=== PATIENT | female | born 1980 | race Caucasian/White ===

== ENCOUNTER 2018-01-21 12:07 | Inpatient (IN) | payer MEDICAID ==
[2018-01-21 13:00] LABS: ADD UMIC YES; UR AMORPHOUS CRYSTAL FEW /HPF (NONE SEEN); UR ASCORBIC ACID NEGATIVE (NEGATIVE); UR BILIRUBIN (Dip) NEGATIVE (NEGATIVE); UR BLOOD (Dip) NEGATIVE (NEGATIVE); UR CLARITY CLOUDY (CLEAR); UR COLOR YELLOW (YELLOW); UR GLUCOSE (Dip) NEGATIVE (NEGATIVE); UR KETONES (Dip) NEGATIVE (NEGATIVE); UR LEUKOCYTE ESTERASE (Dip) NEGATIVE Leu/ul (NEGATIVE); UR NITRITE (Dip) NEGATIVE (NEGATIVE); UR RBC 0 /HPF (0-5); UR SPECIFIC GRAVITY (Dip) 1.014 (1.003-1.030); UR SQUAMOUS EPITHELIAL CELL FEW /HPF (FEW); UR TOTAL PROTEIN (Dip) NEGATIVE (NEGATIVE); UR UROBILINOGEN (Dip) NEGATIVE (NEGATIVE); UR WBC 4 /HPF (0-5)
[2018-01-21] MEDS ORDERED: CARBOPROST 250 MCG INJ IM (21:30)
[2018-01-21] MEDS ORDERED: MISOPROSTOL 200 MCG TAB PR (21:30)
[2018-01-21] MEDS ORDERED: OXYTOCIN 30 UNITS/LR 500 ML IV ×2 (21:30)
[2018-01-21] MEDS: LACTATED RINGER'S 1,000 ML IV* (22:18)
[2018-01-21 22:31] LABS: ADD MAN DIFF? NO
[2018-01-21 22:34] LABS: BASOPHILS % 0.2 % (0.0-2.0); EOSINOPHILS % 0.2 % (0.0-7.0); HEMATOCRIT 35.1 % (37.0-47.0); HEMOGLOBIN 11.6 g/dl (12.0-16.0); LYMPHOCYTES # 1.8 10^3/ul (0.8-2.9); LYMPHOCYTES % 17.4 % (15.0-51.0); MEAN CORPUSCULAR HEMOGLOBIN 25.1 pg (29.0-33.0); MEAN PLATELET VOLUME 10.3 fl (7.4-10.4); MONOCYTE # 0.5 10^3/ul (0.3-0.9); MONOCYTES % 5.4 % (0.0-11.0); NEUTROPHIL # 7.7 10^3/ul (1.6-7.5); NEUTROPHILS % 76.5 % (39.0-77.0); PLATELET COUNT 340 10^3/UL (140-415); RED BLOOD COUNT 4.62 10^6/ul (4.20-5.40); RED CELL DISTRIBUTION WIDTH 14.5 % (11.5-14.5)
[2018-01-21 22:52] LABS: INR 0.87; PROTIME 11.9 Sec (11.9-14.9); PT RATIO 0.9
[2018-01-21 22:53] LABS: PARTIAL THROMBOPLASTIN TIME 28.1 Sec (23.0-35.0)
[2018-01-21 23:21] LABS: HEPATITIS B SURFACE ANTIGEN NEGATIVE (NEGATIVE)
[2018-01-21] MEDS ORDERED: IBUPROFEN 600 MG TAB PO (23:59)
[2018-01-22] MEDS ORDERED: MINERAL OIL LIGHT 10 ML VIAL TOP (02:00)
[2018-01-22] MEDS ORDERED: LIDOCAINE 0.5% (SDV) 50 ML INJ INJ (02:00)
[2018-01-22] MEDS: LACTATED RINGER'S 1,000 ML IV* ×3 (03:38→20:36)
[2018-01-22] MEDS: OXYTOCIN 30 UNITS/LR 500 ML IV (11:44)
[2018-01-22] MEDS: BUTORPHANOL 2 MG INJ IV ×2 (15:11→17:25)
[2018-01-22] MEDS: LACTATED RINGER'S 1,000 ML IV (19:46)
[2018-01-22] MEDS ORDERED: FENTAnyl 2MCG/ML-ROPIV 0.2% 100 ML (20:46)
[2018-01-22 21:12] LABS: RAPID PLASMA REAGIN NONREACTIVE (NR)
[2018-01-22] MEDS ORDERED: NALOXONE (0.4 MG/ML) INJ IV (22:00)
[2018-01-23] MEDS: LACTATED RINGER'S 1,000 ML IV* (01:21)
[2018-01-23] MEDS: FENTAnyl 2MCG/ML-ROPIV 0.2% 100 ML BAG EPI (03:51)
[2018-01-23] MEDS ORDERED: LIDOCAINE 0.5% (SDV) 50 ML INJ (04:31)
[2018-01-23] MEDS: MINERAL OIL LIGHT 10 ML VIAL TOP (04:48)
[2018-01-23] MEDS: OXYTOCIN 30 UNITS/LR 500 ML IV (04:55)
[2018-01-23] MEDS ORDERED: ZOLPIDEM 5 MG TAB PO (06:30)
[2018-01-23] MEDS ORDERED: METHYLERGONOVINE 0.2 MG INJ IM (06:30)
[2018-01-23] MEDS ORDERED: CARBOPROST 250 MCG INJ IM (06:30)
[2018-01-23] MEDS ORDERED: OXYCODONE/ASPIRIN (4.88/325) TAB PO ×2 (06:30)
[2018-01-23] MEDS ORDERED: MISOPROSTOL 200 MCG TAB PR (06:30)
[2018-01-23] MEDS: IBUPROFEN 600 MG TAB PO ×3 (06:30→17:22)
[2018-01-23] MEDS ORDERED: OXYTOCIN 30 UNITS/LR 500 ML IV (06:30)
[2018-01-23] MEDS: WITCH HAZEL/GLYCERIN PAD PR (09:18)
[2018-01-23] MEDS: BENZOCAINE 20% 56 ML SPRAY TOP (09:18)
[2018-01-23] MEDS: SENNA/DOCUSATE NA (8.6MG/50MG) TAB PO ×2 (09:25→21:43)
[2018-01-23] MEDS: LANOLIN 7 GM TUBE TOP (09:25)
[2018-01-24] MEDS: IBUPROFEN 600 MG TAB PO ×5 (00:02→23:47)
[2018-01-24 07:49] LABS: ADD MAN DIFF? NO
[2018-01-24 07:51] LABS: BASOPHILS % 0.2 % (0.0-2.0); EOSINOPHILS # 0.1 10^3/ul (0.0-0.5); EOSINOPHILS % 0.6 % (0.0-7.0); HEMATOCRIT 28.2 % (37.0-47.0); HEMOGLOBIN 9.2 g/dl (12.0-16.0); LYMPHOCYTES # 2.5 10^3/ul (0.8-2.9); LYMPHOCYTES % 20.6 % (15.0-51.0); MEAN CORPUSCULAR HEMOGLOBIN 24.9 pg (29.0-33.0); MEAN CORPUSCULAR HGB CONC 32.6 g/dl (32.0-37.0); MEAN CORPUSCULAR VOLUME 76.2 fl (82.0-101.0); MEAN PLATELET VOLUME 10.6 fl (7.4-10.4); MONOCYTE # 0.9 10^3/ul (0.3-0.9); MONOCYTES % 7.5 % (0.0-11.0); NEUTROPHIL # 8.6 10^3/ul (1.6-7.5); NEUTROPHILS % 70.7 % (39.0-77.0); PLATELET COUNT 262 10^3/UL (140-415); RED CELL DISTRIBUTION WIDTH 14.9 % (11.5-14.5)
[2018-01-24 07:51] LABS: WHITE BLOOD COUNT 12.2 10^3/ul (4.8-10.8)
[2018-01-24] MEDS: SENNA/DOCUSATE NA (8.6MG/50MG) TAB PO ×2 (09:00→21:16)
[2018-01-25] MEDS: BENZOCAINE 20% 56 ML SPRAY TOP (06:02)
[2018-01-25] MEDS: IBUPROFEN 600 MG TAB PO ×2 (06:02→12:29)
[2018-01-25] MEDS: DIPHTH/TET/ACEL PERTUSS (ADULT) 0.5 ML VIAL IM* (09:00)
[2018-01-25] MEDS: SENNA/DOCUSATE NA (8.6MG/50MG) TAB PO (09:00)
[2018-01-25] MEDS: WITCH HAZEL/GLYCERIN PAD PR (12:29)
== END 2018-01-25 14:10 | disposition home or self-care (01) | DRG 807 ==
LOC: OBT 12:07 → PP1 01-23 06:25 → L-D 12:07 → OBT 17:23 → L-D 17:23
PROC: 10E0XZZ Delivery of Products of Conception, External Approach (ICD-10-PCS; principal; 2018-01-23)
PROC: 0W8NXZZ Division of Female Perineum, External Approach (ICD-10-PCS; 2018-01-23)
DX: O36.8130 Decreased fetal movements, third trimester, not applicable or unspecified (principal); Z37.0 Single live birth; Z3A.39 39 weeks gestation of pregnancy
CPT/HCPCS: 62319; 76816; 76818; 81001; 85025; 85610; 85730; 86592; 86850; 86900; 86901; 87340; 90686; 90715